=== PATIENT | male | born 1940 | race Caucasian/White ===

== ENCOUNTER 2016-10-16 10:09 | Day surgery (SDC) | payer BC ==
--- NOTE | ~2016-10-16 | EGD ---
EGD REPORT [facility] [address] [address] NAME: GLENN ESPINOZA : [birth year] STATUS : REG [facility]#: [id number] AGE: 76 ADM/REG DATE : 10/16/16 MR#: [id number] REPORT SERV DATE: 10/16/16 DICTATED BY: GEMINI PALMER DATE: 10/16/16 REPORT STATUS : Draft TRANSCRIBED BY: [facility] DATE: 10/16/16 End[facility] Center Patient Name: Glenn Espinoza Date of : 1940 Attending MD: GEMINI PALMER, Procedure Date No Time: 10/16/2016 Procedure: Colonoscopy Indications: High risk colon cancer surveillance: Personal history of colonic polyps Referring MD: YULIANA ALLEN Medicines: Monitored Anesthesia Care Complications: No immediate complications. Estimated blood loss: None. Procedure: Pre-Anesthesia Assessment: - ASA Grade Assessment: III - A patient with severe systemic disease. After I obtained informed consent, the scope was passed under direct vision. Throughout the procedure, the patient's blood pressure, pulse, and oxygen saturations were monitored continuously. The [facility] [id number] was introduced through the anus and advanced to the cecum, identified by appendiceal orifice and ileocecal valve. The colonoscopy was performed without difficulty. The patient tolerated the procedure well. The quality of the bowel preparation was good. Findings: The perianal and digital rectal examinations were normal. A sessile polyp was found in the ascending colon. The polyp was 2 mm in size. The polyp was removed with a cold biopsy forceps. Resection and retrieval were complete. Verification of patient identification for the specimen was done. Estimated blood loss was minimal. A few small-mouthed diverticula were found in the sigmoid colon and in the descending colon. Internal hemorrhoids were found during retroflexion and were Grade I (internal hemorrhoids that do not prolapse). The exam was otherwise without abnormality on direct and retroflexion views. Impression: - One 2 mm polyp in the ascending colon. Resected and retrieved. - Diverticulosis in the sigmoid colon and in the descending colon. - Internal hemorrhoids. - The examination was otherwise normal on direct and retroflexion views. EGD REPORT [address] [address] NAME: GLENN ESPINOZA : [birth year] STATUS : REG [facility] PAT#: [id number] AGE: 76 ADM/REG DATE : 10/16/16 MR#: [id number] REPORT SERV DATE: 10/16/16 DICTATED BY: GEMINI PALMER DATE: 10/16/16 REPORT STATUS : Draft TRANSCRIBED BY: [employer] DATE: 10/16/16 Recommendation: - Patient has a contact number available for emergencies. The signs and symptoms of potential delayed complications were discussed with the patient. Return to normal activities tomorrow. Written discharge instructions were provided to the patient. - Return to previous diet. - Continue present medications. - Await pathology results. - Repeat colonoscopy for surveillance based on pathology results. Procedure Code(s): --- Professional --- 39543, Colonoscopy, flexible, proximal to splenic flexure; with biopsy, single or multiple Diagnosis Code(s): --- Professional --- D12.2, Benign neoplasm of ascending colon K64.0, First degree hemorrhoids K57.30, Diverticulosis of large intestine without perforation or abscess without bleeding Z86.010, Personal history of colonic polyps CPT copyright 2013 [employer]. All rights reserved. The codes documented in this report are preliminary and upon digital marketing program manager review may be revised to meet current compliance requirements. GEMINI PALMER, 10/16/2016 11:34 AM Number of Addenda: 0 Note Initiated On: 10/16/2016 11:06 AM Scope Withdrawal Time 0 hours 16 minutes 32 seconds [id number] [id number]
[~2016-10-16 10:09] MED LIST: CLEOCIN300 MG PO; COLCRYS0.6 MG PO; COZ50 PO; EXCEDRIN PO; INDO50 PO; Z100 PO
== END 2016-10-16 23:59 | disposition home or self-care (01) ==
LOC: DMU 10:09
PROVIDERS: Internal Medicine Gastroenterology
PROC: 0DBK8ZZ Excision of Ascending Colon, Via Natural or Artificial Opening Endoscopic (ICD-10-PCS; principal; 2016-10-16 11:30)
DX: Z12.11 Encounter for screening for malignant neoplasm of colon (principal); D12.2 Benign neoplasm of ascending colon; K64.0 First degree hemorrhoids; H91.90 Unspecified hearing loss, unspecified ear; I10 Essential (primary) hypertension; I25.10 Atherosclerotic heart disease of native coronary artery without angina pectoris; Z90.89 Acquired absence of other organs
CPT/HCPCS: 88305